=== PATIENT | male | born 1990 | race Caucasian/White ===

== ENCOUNTER 2016-12-06 14:59 | Emergency (ER) | payer MEDICAID ==
[2016-12-06 15:05] VITALS: BP 121/71; PULSE 78; RESP 20; TEMP 98.2; O2SAT 94
--- NOTE | 2016-12-06 15:24 | EDPHY ---
H & P Time Seen by Provider: 12/06/16 15:11 HPI/ROS: CHIEF COMPLAINT: Sore throat HISTORY OF PRESENT ILLNESS: Patient is a 26-year-old male who presents emergency department multiple cold-like complaints. The patient states the symptoms started 1 week ago. He developed significant runny nose and congestion. He has now had sore throat for weak. He has discomfort that is mild on both sides. He has no difficulty swallowing. He had mild nausea with no vomiting. He has had a cough that is productive of orange sputum. The patient smokes cigarettes and THC. Patient denies chest pain. He has mild bilateral ear pain with no discharge. No hearing change. REVIEW OF SYSTEMS: My complete review of systems is negative except as mentioned in the HPI. Past Medical/Surgical History: Includes appendectomy Social history: The patient reports THC and tobacco use. occasional alcohol use. Smoking Status: Current every day smoker Physical Exam: Vitals noted. Afebrile. GENERAL: Well-appearing, in no acute distress, alert. HEENT: Eyes normal to inspection, no signs of dehydration. Mild pharyngeal erythema. Uvula is midline. No asymmetry. No visible signs of peritonsillar retropharyngeal abscess. No lesions or discharge. NECK: No thyromegaly, no lymphadenopathy, supple. RESPIRATORY: Clear to auscultation bilaterally, no rales, rhonchi or wheezing. CVS: Regular rate and rhythm, no rubs, murmurs, or gallops. ABDOMEN: Soft, nontender, nondistended, no organomegaly. BACK: Normal to inspection, no CVA tenderness. SKIN: Normal color, no rash, warm, dry. No pallor. EXTREMITIES: No pedal edema, no calf tenderness, no joint swelling. NEURO/PSYCH: Alert and oriented x3, normal mood and affect, normal motor sensory exam. No obvious cranial nerve deficit. Constitutional: Initial Vital Signs Temperature (C) 36.8 C 12/06/16 15:03 Heart Rate 78 12/06/16 15:03 Respiratory Rate 20 12/06/16 15:03 Blood Pressure 121/71 H 12/06/16 15:03 O2 Sat (%) 94 12/06/16 15:03 O2 Delivery Mode Room Air Allergies/Adverse Reactions: No Known Allergies Allergy (Verified 12/06/16 15:03) Home Medications: Medication Instructions Recorded Ibuprofen [Motrin (*)] 800 mg PO Q6-8PRN #30 tab 07/08/16 Acyclovir 400 mg PO TID #30 tablet 08/04/16 AZITHROMYCIN [Z-PACK] 250 mg PO DAILY #1 packet 12/06/16 Medical Decision Making ED Course/Re-evaluation: In the emergency department I discussed possible etiologies with the patient. I answered all the patient's questions. The patient was given a prescription for azithromycin. He is given warnings prior to leaving. He will return with worsening symptoms. Differential Diagnosis: My differential includes but is not limited to pharyngitis, strep pharyngitis, peritonsillar abscess, retropharyngeal abscess, mononucleosis,, pneumonia, bronchitis, small-bowel obstruction, perforation, pancreatitis Departure - Departure Disposition: Home, Routine, Self-Care Clinical Impression: Acute pharyngitis Qualifiers: Pharyngitis/tonsillitis etiology: unspecified etiology Qualified Code(s): J02.9 - Acute pharyngitis, unspecified Condition: Good Instructions: Pharyngitis (ED) Additional Instructions: Return with increasing pain, difficulty swallowing, persistent fever, shortness of breath or any other concerns. Take your entire course of antibiotics. Referrals: Diana Barragan MD [Medical Doctor] - 5-7 days, if not improved Prescriptions: AZITHROMYCIN [Z-PACK] 250 mg PO DAILY #1 packet
== END 2016-12-06 15:55 | disposition home or self-care (01) ==
DX: J02.9 Acute pharyngitis, unspecified (principal); F17.200 Nicotine dependence, unspecified, uncomplicated

== ENCOUNTER 2016-12-14 11:07 | Emergency (ER) | payer MEDICAID ==
[2016-12-14 11:13] VITALS: BP 126/72; PULSE 77; RESP 22; TEMP 97.9; O2SAT 95
--- NOTE | 2016-12-14 12:25 | EDPHY ---
H & P Time Seen by Provider: 12/14/16 12:22 HPI/ROS: HPI: 26-year-old male presents to emergency department chief concern right forearm skin infection. Overnight, developed a red, itchy area on the right forearm that has grown larger and "hard" under the skin. This happened while he was asleep. Area is itchy and painful. Denies fever, chills, myalgias, recent infections, nausea vomiting. Denies swelling or limited range of motion. Has no significant past medical history. Has no recent infections. 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 He has no primary care provider. ROS:10 point review of systems is negative other than as stated in HPI Past Medical/Surgical History: Denies Smoking Status: Current every day smoker Physical Exam: Vital signs stable, reviewed by me General: Awake, alert, calm, cooperative. No acute distress. Head: Normalocephalic. Atraumatic. EENT: PERRLA. EOMI. No pallor or injection. Anicteric. No nystagmus. Neck: Supple, nontender. No lymphadenopathy. Full range of motion. Respiratory: Breathing unlabored. CV: Chest nontender, atraumatic. Heart rate regular. GI: Abdomen soft, nontender. Neuro: Alert. Oriented x 3. Speech clear. Nonfocal cranial nerves throughout. Sensation intact all extremities. Strength 5+ all extremities. Follows commands. Skin: Skin warm, dry, 1 cm x 1 cm erythematous papule with underlying induration. No fluctuance. No discharge present. Skin turgor normal. Extremities: Full range of motion in all 4 extremities. Mental status: Interactive, appropriate, well-groomed. Constitutional: Initial Vital Signs Temperature (C) 36.6 C 12/14/16 11:11 Heart Rate 77 12/14/16 11:11 Respiratory Rate 22 H 12/14/16 11:11 Blood Pressure 126/72 H 12/14/16 11:11 O2 Sat (%) 95 12/14/16 11:11 O2 Delivery Mode Room Air Allergies/Adverse Reactions: No Known Allergies Allergy (Verified 12/14/16 11:10) Home Medications: Medication Instructions Recorded Sulfamethox/Tmp 800/160 mg 1 tab PO BID #14 tab 12/14/16 [Bactrim Ds] Medical Decision Making ED Course/Re-evaluation: Vitals stable. Patient is immunocompetent and nontoxic. He is afebrile. Vitals are stable. He has no history of MRSA or other significant infections. He has no primary care provider. I have advised symptomatic care. There is no abscess to drain at this time. If symptoms worsen, he should start Bactrim. He verbalizes understanding of this plan and agrees to do so. Differential Diagnosis: Differential diagnosis includes but is not limited to abscess, MRSA, cellulitis Departure - Departure Disposition: Home, Routine, Self-Care Clinical Impression: infected papule of skin Condition: Good Instructions: Acute Wounds (ED) Additional Instructions: Plan: Heat to area 3 times daily for 20 minutes Wash with warm, soapy water and apply antibiotic ointment daily If symptoms worsen over the next 2-3 days, begin Bactrim antibiotic as prescribed Please get a [facility] and get established with primary care Return for recheck should symptoms worsen, if you develop fever vomiting Referrals: NONE *PRIMARY CARE P,. [Primary Care Provider] - As per Instructions [facility],. [Clinic] - As per Instructions Prescriptions: Sulfamethox/Tmp 800/160 mg [Bactrim Ds] 1 tab PO BID #14 tab
== END 2016-12-14 12:36 | disposition home or self-care (01) ==
DX: L08.9 Local infection of the skin and subcutaneous tissue, unspecified (principal); F17.200 Nicotine dependence, unspecified, uncomplicated

== ENCOUNTER 2017-04-01 11:21 | Emergency (ER) | payer MEDICAID ==
[2017-04-01 11:34] VITALS: BP 122/73; PULSE 79; RESP 18; TEMP 98.8; O2SAT 94
== END 2017-04-01 12:38 | disposition left against medical advice (07) ==
DX: Z53.21 Procedure and treatment not carried out due to patient leaving prior to being seen by health care provider (principal)

== ENCOUNTER 2017-05-05 15:19 | Emergency (ER) | payer MEDICAID ==
[2017-05-05 15:26] VITALS: BP 98/75; PULSE 109; RESP 16; TEMP 99.3; O2SAT 93
[2017-05-05] MEDS ORDERED: TDAP ADULT 0.5 ML INJ (BOOSTRIX) IM ONE (16:00)
--- NOTE | 2017-05-05 16:01 | EDPHY ---
H & P Stated Complaint: LACERATION TO LEFT LEG WITH BARBED WIRE Time Seen by Provider: 05/05/17 16:01 HPI/ROS: HPI: This is a 27-year-old male who presents with Chief Complaint: Scratches on length Location: Left lower leg Quality: Scratches Duration: Early yesterday morning Signs and Symptoms: No bleeding, no radiation, no numbness, no weakness, no tingling, no decreased range of motion, no redness, no warmth Timing: Sudden, improving Severity: Mild Context: Patient reports that he was running through the park with his dog and accidentally stepped over some barbed wire that scratch his left lower leg in 3 places. Patient washed with mild soap and water as well as hydrogen peroxide. He is unsure of his tetanus shot she came to the ER for a booster. He has no other complaints. Ambulatory without deficits. Modifying Factors: Local wound care Comment: ROS: Constitutional: No fever, no chills, no weight loss Eyes: No blurred vision Respiratory: No shortness of breath, no cough Cardiovascular: No chest pain Gastrointestinal: No nausea, no vomiting no diarrhea Genitourinary: No dysuria Extremities: No myalgias Neurologic: No weakness, no numbness Skin: No rashes Hematologic: No bruising, no bleeding MEDICAL/SURGICAL/SOCIAL HISTORY: Generally healthy. Denies surgical history. Source: Patient Exam Limitations: No limitations - Personal History Current Tetanus Diphtheria and Acellular Pertussis (TDAP): No Tetanus Vaccine Date: > 10 YEARS - Medical/Surgical History Hx Asthma: Yes Hx Chronic Respiratory Disease: No Hx Diabetes: No Hx Cardiac Disease: No Hx Renal Disease: No Hx Cirrhosis: No Hx Alcoholism: No Hx HIV/AIDS: No Hx Splenectomy or Spleen Trauma: No Other PMH: appendectomy chronic pain/back/shoulders - Social History Smoking Status: Current every day smoker - Physical Exam Exam: CONSTITUTIONAL: Young adult male, who smells heavily of marijuana, awake and alert, no obvious distress HEENT: Atraumatic and normocephalic, PERRL, EOMI. Tympanic membranes clear. Oropharynx clear, no exudate and moist pink mucosa. Airway patent. No lymphadenopathy. No meningismus. Cardiovascular: Normal S1/S2, regular rate, regular rhythm, without murmur rub or gallop. PULMONARY/CHEST: Symmetrical and nontender. Clear to auscultation bilaterally Good air movement. No accessory muscle usage. ABDOMEN: Soft, nondistended, nontender, no rebound, no guarding, no peritoneal signs, no masses or organomegaly. No CVAT. EXTREMITIES: 2/2 pulses, no deformities, no clubbing, no cyanosis or edema. NEUROLOGICAL: no focal neuro deficits. GCS 15. SKIN: Warm and dry, 3 small superficial abrasion on left lower calf; no erythema. no rash. Good capillary refill. Constitutional: Initial Vital Signs Temperature (C) 37.4 C 05/05/17 15:24 Heart Rate 109 H 05/05/17 15:24 Respiratory Rate 16 05/05/17 15:24 Blood Pressure 98/75 L 05/05/17 15:24 O2 Sat (%) 93 05/05/17 15:24 O2 Delivery Mode Room Air Allergies/Adverse Reactions: No Known Allergies Allergy (Verified 05/05/17 15:27) Home Medications: Medication Instructions Recorded NK [No Known Home Meds] 04/01/17 Medical Decision Making ED Course/Re-evaluation: Wounds are greater than 24 hours old and do not require suturing as they superficial nature. Tetanus booster given. Advised to continue local wound care. Differential Diagnosis: Differential diagnosis includes but is not limited to contusion, abrasion, laceration, inflammation, cellulitis. Departure - Departure Disposition: Home, Routine, Self-Care Clinical Impression: Leg abrasion, non-infected Condition: Good Instructions: Abrasion (ED) Additional Instructions: Wash site daily with mild soap and water. Apply topical antibiotic daily as needed to prevent infection. Monitor signs and symptoms of infection including but not limited to redness, warmth, purulent drainage. Referrals: [facility],. [Clinic] - As per Instructions
== END 2017-05-05 16:22 | disposition home or self-care (01) ==
DX: S80.812A Abrasion, left lower leg, initial encounter (principal); F17.200 Nicotine dependence, unspecified, uncomplicated; J45.909 Unspecified asthma, uncomplicated; Z23 Encounter for immunization; W26.8XXA Contact with other sharp object(s), not elsewhere classified, initial encounter; Y92.830 Public park as the place of occurrence of the external cause; Y99.8 Other external cause status; Y93.02 Activity, running

== ENCOUNTER 2017-07-04 13:23 | Emergency (ER) | payer MEDICAID ==
[2017-07-04 13:29] VITALS: RESP 16; TEMP 98.6; O2SAT 99
[2017-07-04 13:30] VITALS: BP 115/71
--- NOTE | 2017-07-04 15:28 | EDPHY ---
H & P Time Seen by Provider: 07/04/17 14:24 HPI/ROS: CHIEF COMPLAINT: Laceration left index finger HISTORY OF PRESENT ILLNESS: 27-year-old male presents to the emergency department laceration to the left index finger. The patient was at home and accidentally cut himself with a knife while chopping vegetables. The incident happened just prior to arrival. Complains of isolated pain to the left index finger. He believes his tetanus shot is current. Denies any other trauma or injury. He is right-hand dominant. ROS: Denies numbness or tingling in his fingers, retained foreign body. Past Medical/Surgical History: Appendectomy Social History: Single and lives in [place]. 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 Full flexion and extension of the finger. No palpable bony tenderness. No evidence of tendon injury. No evidence of retained foreign body. Full range of motion of his other fingers. The other fingers do not appear injured. Normal sensation to light touch with normal 2 point discrimination. Constitutional: Initial Vital Signs Temperature (C) 37.0 C 07/04/17 13:27 Heart Rate 107 H 07/04/17 13:27 Respiratory Rate 16 07/04/17 13:27 Blood Pressure 115/71 07/04/17 13:27 O2 Sat (%) 99 07/04/17 13:27 O2 Delivery Mode Room Air Allergies/Adverse Reactions: No Known Allergies Allergy (Verified 07/04/17 13:26) Home Medications: Medication Instructions Recorded NK [No Known Home Meds] 04/01/17 MDM/Departure - MDM Procedures: Laceration repair. Verbal consent was obtained from the patient. The 1.5 cm laceration on the left index finger was anesthetized using 1% lidocaine with epinephrine. The wound was irrigated with saline, draped and explored to its base with a gloved finger. There were no deep structures involved. No tendon injury was identified. The wound was repaired with 5 0 Ethilon, 4 sutures. The wound repair was simple. The procedure was performed by myself. ED Course/Re-evaluation: 27-year-old male presents emergency department laceration to the left index finger. The wound was repaired, see procedure note. Patient was given wound care precautions. - Depart Disposition: Home, Routine, Self-Care Clinical Impression: Laceration of left index finger Qualifiers: Encounter type: initial encounter Damage to nail status: without damage Foreign body presence: without foreign body Qualified Code(s): S61.211A - Laceration without foreign body of left index finger without damage to nail, initial encounter Condition: Good Instructions: Care For Your Stitches (ED), Laceration (ED), Acute Wounds (ED) Additional Instructions: Wound Care Follow-Up: Removal of sutures in 10 days. Suture removal is complimentary in uncomplicated cases. Infection or abnormal findings would require reevaluation by the MD. In that case, you may be billed. Return to the emergency department if you notice any signs or symptoms of infection such as redness, swelling, increased pain, fever, purulent drainage. Referrals: Reva Villanueva DO [Doctor of Osteopathy] - As per Instructions
[2017-07-04 15:54] VITALS: PULSE 76
== END 2017-07-04 15:52 | disposition home or self-care (01) ==
PROC: 0HQGXZZ Repair Left Hand Skin, External Approach (ICD-10-PCS; principal; 2017-07-04)
DX: S61.211A Laceration without foreign body of left index finger without damage to nail, initial encounter (principal); W26.0XXA Contact with knife, initial encounter; Y92.009 Unspecified place in unspecified non-institutional (private) residence as the place of occurrence of the external cause; Y93.89 Activity, other specified; F17.200 Nicotine dependence, unspecified, uncomplicated

== ENCOUNTER 2017-09-28 09:49 | Emergency (ER) | payer MEDICAID ==
[2017-09-28 09:55] VITALS: BP 131/93; PULSE 68; RESP 16; TEMP 98.6; O2SAT 96
--- NOTE | 2017-09-28 09:57 | EDPHY ---
H & P Stated Complaint: cough, chills, body aches x 2 days Time Seen by Provider: 09/28/17 09:57 HPI/ROS: HPI: This is a 27-year-old male who presents with Chief Complaint: cough, chills, body aches x 2 days Location: Chest Quality: Cough Duration: 1 day Signs and Symptoms:+ fever, + chills, + dry hacking cough, + no sore throat, + fatigue, + body aches, + no chest pain, no shortness of breath, no wheezing, no abdominal pain, no nausea, vomiting Timing: Sudden, constant Severity: Moderate Context: Patient presents with complaints of 2 day history of chills, body aches, subjective fevers and fatigue and 1 day history of harsh productive cough. He has a history of asthma diagnosis a child. Reports that he has albuterol inhaler and albuterol nebulizer with medication vials at home but he has not used any of these medications as he does not feel short of breath or have any wheezing. Patient reports that he has been taking Motrin every 8 hr around the clock for the last 2 days. He does not believe in influenza vaccine because when he was 5 years old he had the flu shot and then was diagnosed with the flu. Eating and drinking normally. + tobacco user Modifying Factors: Motrin Comment: ROS: see HPI Constitutional: + fever, no chills, no weight loss Eyes: No blurred vision Respiratory: No shortness of breath, + cough Cardiovascular: No chest pain Gastrointestinal: No nausea, no vomiting, no diarrhea Genitourinary: No dysuria Extremities: No myalgias Neurologic: No weakness, no numbness Skin: No rashes Hematologic: No bruising, no bleeding MEDICAL/SURGICAL/SOCIAL HISTORY: Medical history: + tobacco user. Childhood asthma. Does not take any regular medications. Surgical history: Appendectomy Social history: Employed. CONSTITUTIONAL: Well-developed, well-nourished adult white male, awake and alert, no obvious distress HEENT: Atraumatic and normocephalic, PERRL, EOMI. Tympanic membranes clear. Oropharynx clear, no exudate and moist pink mucosa. Airway patent. No lymphadenopathy. No meningismus. Cardiovascular: Normal S1/S2, regular rate, regular rhythm, without murmur rub or gallop. PULMONARY/CHEST: Symmetrical and nontender. Clear to auscultation bilaterally. Good air movement. No accessory muscle usage. ABDOMEN: Soft, nondistended, nontender, no rebound, no guarding, no peritoneal signs, no masses or organomegaly. No CVAT. EXTREMITIES: 2/2 pulses, strength 5/5, no deformities, no clubbing, no cyanosis or edema. NEUROLOGICAL: no focal neuro deficits. GCS 15. SKIN: Warm and dry, no erythema. no rash. Good capillary refill. Source: Patient Exam Limitations: No limitations - Personal History Current Tetanus/Diphtheria Vaccine: Unsure Current Tetanus Diphtheria and Acellular Pertussis (TDAP): Unsure Tetanus Vaccine Date: 2016 - Medical/Surgical History Hx Asthma: No Hx Chronic Respiratory Disease: No Hx Diabetes: No Hx Cardiac Disease: No Hx Renal Disease: No Hx Cirrhosis: No Hx Alcoholism: No Hx HIV/AIDS: No Hx Splenectomy or Spleen Trauma: No Other PMH: appendectomy - Social History Smoking Status: Current every day smoker Constitutional: Initial Vital Signs Temperature (C) 37.0 C 09/28/17 09:53 Heart Rate 68 09/28/17 09:53 Respiratory Rate 16 09/28/17 09:53 Blood Pressure 131/93 H 09/28/17 09:53 O2 Sat (%) 96 09/28/17 09:53 O2 Delivery Mode Room Air Allergies/Adverse Reactions: No Known Allergies Allergy (Verified 07/04/17 13:26) Home Medications: Medication Instructions Recorded Benzonatate [Tessalon Pearles (RX)] 100 mg PO Q6 PRN #15 cap 09/28/17 Oseltamivir Phosphate [Tamiflu 75 75 mg PO BID #10 cap 09/28/17 mg (*)] Medical Decision Making - Diagnostics Imaging Results: Imaging Impressions Chest X-Ray 09/28/17 10:01 Impression: Normal. ED Course/Re-evaluation: Due to history of asthma and fever; chest x-ray ordered to evaluate for pneumonia. Patient has no wheezing/respiratory distress/hypoxia and politely declined nebulizer therapy. He was given Tessalon Perles with adequate relief Influenza A positive; Tamiflu candidate due to lung disease history Chest x-ray my read shows no signs of infiltrate, effusion, pneumothorax, widened mediastinum No signs of asthma exacerbation This patient was seen under the supervision of my secondary supervising physician. I evaluated care for this patient independently. Differential Diagnosis: Differential diagnosis includes but is not limited to influenza, asthma exacerbation, pneumonia, upper respiratory infection. - Data Points Laboratory Results: 09/28/17 09:55 Nasal Influenza A PCR FLU A DETECTED H (NEGATIVE) Nasal Influenza B PCR NEGATIVE FOR FLU B (NEGATIVE) Medications Given: Discontinued Medications Benzonatate (Tessalon Pearles) 200 mg PO EDNOW ONE Stop: 09/28/17 10:02 Last Admin: 09/28/17 10:06 Dose: 200 mg Departure - Departure Disposition: Home, Routine, Self-Care Clinical Impression: Influenza A Asthma Qualifiers: Asthma severity: mild Asthma persistence: persistent Asthma complication type: uncomplicated Qualified Code(s): J45.30 - Mild persistent asthma, uncomplicated Condition: Good Instructions: Influenza (ED) Referrals: [facility],. [Clinic] - As per Instructions Prescriptions: Benzonatate [Tessalon Pearles (RX)] 100 mg PO Q6 PRN #15 cap PRN Reason: Cough, Moderate Oseltamivir Phosphate [Tamiflu 75 mg (*)] 75 mg PO BID #10 cap
[2017-09-28] MEDS ORDERED: BENZONATATE 100 MG CAP PO ONE (10:01)
== END 2017-09-28 10:50 | disposition home or self-care (01) ==
DX: J10.1 Influenza due to other identified influenza virus with other respiratory manifestations (principal); J45.30 Mild persistent asthma, uncomplicated; F17.200 Nicotine dependence, unspecified, uncomplicated

== ENCOUNTER → 2017-11-06 | Emergency (ER) | payer MEDICAID | END | disposition left against medical advice (07) | DX: Z53.21 Procedure and treatment not carried out due to patient leaving prior to being seen by health care provider (principal) ==

== ENCOUNTER 2017-11-10 09:09 | Emergency (ER) | payer MEDICAID ==
--- NOTE | 2017-11-10 09:27 | EDPHY ---
H & P Stated Complaint: R heel pain x 1 wk;no injury;neg xray at [place] [facility] Time Seen by Provider: 11/10/17 09:27 - Personal History Current Tetanus Diphtheria and Acellular Pertussis (TDAP): Yes Tetanus Vaccine Date: 2016 - Medical/Surgical History Hx Asthma: No Hx Chronic Respiratory Disease: No Hx Diabetes: No Hx Cardiac Disease: No Hx Renal Disease: No Hx Cirrhosis: No Hx Alcoholism: No Hx HIV/AIDS: No Hx Splenectomy or Spleen Trauma: No Other PMH: appendectomy. plantar fascitis - Social History Smoking Status: Current every day smoker Constitutional: Initial Vital Signs Temperature (C) 36.7 C 11/10/17 09:10 Heart Rate 69 11/10/17 09:10 Respiratory Rate 16 11/10/17 09:10 Blood Pressure 144/91 H 11/10/17 09:10 O2 Sat (%) 96 11/10/17 09:10 O2 Delivery Mode Room Air Allergies/Adverse Reactions: No Known Allergies Allergy (Verified 11/10/17 09:14) Home Medications: Medication Instructions Recorded NK [No Known Home Meds] 11/10/17 Medical Decision Making - Diagnostics Imaging Results: Imaging Impressions Extremity CT 11/10/17 09:31 Impression: No evidence for fracture or fracture line of the calcaneus. An MRI could be performed for further evaluation to look for more subtle stress injury of the calcaneus or other abnormalities such as plantar fasciitis. Results called and discussed with Brandon Manning M.D. on 11/10/2017 at 10:30 a.m. Imaging: Discussed imaging studies w/ orthopedically impaired teacher Radiologist, I viewed and interpreted images myself ED Course/Re-evaluation: CHIEF COMPLAINT: Right heel pain HISTORY OF PRESENT ILLNESS: Patient is very active and runs. He had no specific injury. He notice heel pain about 2 weeks ago. It has gotten much worse and progressed and is now radiating up his Achilles. He was seen at the [facility] ([place], [place]) and had negative plain films. They told him to expect it to get better over a few days but it has gotten worse. He is here for further evaluation. He denies any other injuries. He denies any prior injury to that he will but he has had some ankle sprains in fractures on that right ankle. No chest pain, shortness of breath, abdominal pain, urinary or bowel complaints, fever, headache. REVIEW OF SYSTEMS: A 10 point review of systems was performed and is negative with the exception of the elements mentioned in the history of present illness. PHYSICAL EXAM: HR, BP, O2 Sat, RR. Temp noted General Appearance: Alert, well hydrated, appropriate, and non-toxic appearing. Head: Atraumatic without scalp tenderness or obvious injury Eyes: Pupils equal, round, reactive to light and accommodation, EOMI, no trauma , no injection. Ears: Clear bilaterally, no perforation, normal landmarks Nose: Atraumatic, no rhinorrhea, clear. Throat: Mucus membranes moist. Neck: Supple, nontender, no lymphadenopathy. Respiratory: No retractions, no distress, no wheezes, and no accessory muscle use. Lungs are clear to auscultation bilaterally. Cardiovascular: Regular rate and rhythm, no murmurs, rubs, or gallops. Good capillary refill all extremities. Gastrointestinal: Abdomen is soft, nontender, non-distended, no masses, no rebound, no guarding, no peritoneal signs. Musculoskeletal: Point tenderness over the posterior superior aspect of the calcaneus on the sides of the Achilles tendon. Otherwise, Normal active ROM of all extremities, atraumatic. Neurological: Alert, appropriate, and interactive. Non-focal neuro. Skin: No rashes, good turgor, no nodules on palpation. Past medical history: Orthopedic injuries as mentioned above Past surgical history: None Family history: Noncontributory Social history: Single, employed, does not abuse tobacco drugs or alcohol DIAGNOSTICS/PROCEDURES/CRITICAL CARE TIME: Study: CT of the right calcaneus Indication: Progressing calcaneal pain with negative plain films Results: CT scan of the right calcaneus was obtained. The results of the study are normal. The study was read by the radiologist, Dr. Julian. I viewed the images myself on the PACS system. DIFFERENTIAL DIAGNOSIS: Includes but is not limited to: Soft tissue injury, ligamentous injury, occult fracture, sprain, strain MEDICAL DECISION MAKING: This patient has progressing calcaneus pain especially while bearing weight. He does run considerable number miles each week and he also stands on his feet while working. He had negative plain films ordered as the pain has progressed, so he came for further evaluation. 1028: Spoke with Dr. Julian, radiologist, regarding patient's foot CT. There is no evidence of an osseous injury. Reassessed patient and discussed imaging findings. His symptoms are consistent with a foot contusion. I have referred him to an outpatient follow up visit with an orthopedic surgeon. Return precautions provided; patient is comfortable with this plan. Departure - Departure Disposition: Home, Routine, Self-Care Clinical Impression: Pain of right heel Contusion, foot Qualifiers: Encounter type: initial encounter Laterality: right Qualified Code(s): S90.31XA - Contusion of right foot, initial encounter Condition: Good Instructions: Foot Contusion (ED) Additional Instructions: 1. Rest, ice, elevation. Follow up with an orthopedic surgeon within one week. 2. Return to the emergency department for worsening pain, swelling, numbness, weakness or other concerns. 3. Wear the post-op shoe until reevaluation, but okay to shower and sleep without it. 4. Use ibuprofen as directed for pain. Referrals: Mohsen Alvarado MD [Medical Doctor] - As per Instructions Report Scribed for: Brandon Manning Report Scribed by: Cindy Astorga Date of Report: 11/10/17 Time of Report: 09:35
[2017-11-10 10:42] VITALS: BP 112/78; PULSE 67; RESP 15; TEMP 98.7; O2SAT 99
== END 2017-11-10 10:40 | disposition home or self-care (01) ==
DX: S90.31XA Contusion of right foot, initial encounter (principal); F17.200 Nicotine dependence, unspecified, uncomplicated; X58.XXXA Exposure to other specified factors, initial encounter

== ENCOUNTER 2018-03-22 12:13 | Emergency (ER) | payer MEDICAID ==
--- NOTE | 2018-03-22 13:06 | EDPHY ---
HPI/HX/ROS/PE/MDM Narrative: CHIEF COMPLAINT: Fall, anterior and posterior rib pain. HISTORY OF PRESENT ILLNESS: This patient is a healthy 27 year old male who complains of left anterior and posterior rib pain after falling while trail running yesterday. He was running [place] a [place] trail [place] and [place]pped and fell, landing on a rock under his left armpit. He denies any shoulder joint pain or clavicle pain. He endorses some upper left-sided sternal pain and left scapular pain. He has increased discomfort with deep inspiration. The patient states he feels like a rib on the left is "displaced". He has a history of prior rib fractures, but his current pain is not similar to this. He denies any other recent trauma. He did not strike his head. No loss of consciousness. No fever, chills, shortness of breath, palpitations, vomiting, diarrhea, urinary complaints, headache, lightheadedness. REVIEW OF SYSTEMS: Aside from elements discussed in the HPI, a comprehensive 10-point review of systems was reviewed and is negative. PAST MEDICAL HISTORY: Denies. SOCIAL HISTORY: Marijuana use. Lives in [place]. Single. VITAL SIGNS: Reviewed by me; see NN. GENERAL: Well-developed, well-nourished, in no acute distress. HEENT: Head: Atraumatic, normocephalic. Face: Atraumatic. PERRL, EOMI, no nystagmus. Oropharynx: No trauma, normal occlusion. Neck: Nontender to palpation, no pain with range of motion, no adenopathy. CHEST: Mild tenderness along anterior left upper chest, just under clavicle, no subcutaneous air palpable. Area of tenderness to left of upper thoracic spine. LUNGS: Diminished breath sounds throughout. CARDIAC: Regular rate and rhythm, no rubs, murmurs or gallops. ABDOMEN: Soft, nontender, nondistended, bowel sounds normal. BACK: No CVA tenderness, no spinal tenderness. EXTREMITIES: Abrasions under left armpit. Abrasion to left forearm. Abrasion to right elbow, extending down right forearm. Healing abrasions to left knee. Normal range of motion. PULSES: 2+ and equal throughout. NEURO: Alert and oriented x3, cranial nerves are intact throughout, normal motor , normal sensation. SKIN: Warm and dry, no rash. Portions of this note were transcribed by a medical staff director. I personally performed a history, physical exam, medical decision making, and confirmed accuracy of information the transcribed note. ED Course: 27 y/o male presents with left anterior and posterior rib pain secondary to a mechanical fall while trail running. Exam reveals multiple abrasions, under his left armpit, on his upper extremities, and on his left knee. Breath sounds are diminished throughout. Plan for chest x-ray with ribs to r/o fracture, pneumothorax, or other acute processes. Reviewed CXR. Negative for acute fracture or pneumothorax. Radiologist report concurs. Reassessed patient. Discussed imaging results. Plan to discharge home in good condition with a prescription for [place] for severe pain. Follow up and return precautions discussed. The patient is comfortable with this plan. MDM: Diff dx considered included contusion, abrasion, rib fracture, rib displacement , musculoskeletal pain, ptx. - Data Points Imaging Results: Impression: No displaced rib fracture identified. Dictated By: Ziyad Sanchez MD Imaging: I viewed and interpreted images myself General Time Seen by Provider: 03/22/18 12:57 Initial Vital Signs: Initial Vital Signs Temperature (C) 36.7 C 03/22/18 12:21 Heart Rate 89 03/22/18 12:21 Respiratory Rate 16 03/22/18 12:21 Blood Pressure 116/70 03/22/18 12:21 O2 Sat (%) 94 03/22/18 12:21 O2 Delivery Mode Room Air Allergies/Adverse Reactions: amoxicillin [From Augmentin] Allergy (Verified 03/22/18 12:24) clavulanic acid [From Augmentin] Allergy (Verified 03/22/18 12:24) quetiapine [From Seroquel] Allergy (Verified 03/22/18 12:24) Home Medications: Medication Instructions Recorded Hydrocodone/APAP 5/325 [[place] 1 tab PO Q6H PRN #10 tab 03/22/18 5/325 (RX)] Departure - Departure Disposition: Home, Routine, Self-Care Clinical Impression: Contusion of rib on left side Qualifiers: Encounter type: initial encounter Qualified Code(s): S20.212A - Contusion of left front wall of thorax, initial encounter Condition: Good Instructions: Hydrocodone/Acetaminophen (By mouth), Rib Fracture (ED), Contusion in Adults (ED), Chest Wall Pain (ED) Additional Instructions: I recommend Ibuprofen (Motrin, Advil) or Naproxen Sodium (Aleve) for pain and anti-inflammatory effects. You may take either one, but do not take both. Your dose is: Ibuprofen 600 mg every 6-8 hours with food. OR Naproxen Sodium (Aleve) 220 mg every 12 hours. Take [place] as prescribed as needed for severe pain. Note: do not take Acetaminophen with Hydrocodone (Vicodin, Lortab) or Oxycodone (Percocet). These medications also contain Acetaminophen. No more than 3000mg of Acetaminophen should be taken in 24 hours (for an adult). Use ice as needed for discomfort. Take frequent, deep breaths to avoid the development of pneumonia. Return to the emergency department or seek care urgently if you're not improving despite the above measures. Referrals: Chelsea Duong MD [Medical Doctor] - As per Instructions Prescriptions: Hydrocodone/APAP 5/325 [[place] 5/325 (RX)] 1 tab PO Q6H PRN #10 tab PRN Reason: Pain Report Scribed for: Verona Carnes Report Scribed by: Ashley Suarez Date of Report: 03/22/18 Time of Report: 13:29
[2018-03-22 13:32] VITALS: BP 128/71
== END 2018-03-22 13:30 | disposition home or self-care (01) ==
DX: R07.81 Pleurodynia (principal); S40.812A Abrasion of left upper arm, initial encounter; S50.311A Abrasion of right elbow, initial encounter; S80.212A Abrasion, left knee, initial encounter; W01.198A Fall on same level from slipping, tripping and stumbling with subsequent striking against other object, initial encounter; Y93.02 Activity, running; Y92.828 Other wilderness area as the place of occurrence of the external cause

== ENCOUNTER 2018-04-15 20:47 | Emergency (ER) | payer MEDICAID ==
[2018-04-15 21:00] VITALS: BP 120/77
--- NOTE | 2018-04-15 21:17 | EDPHY ---
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 No rectal foreign body or trauma. PHYSICAL EXAM (Prior to examination, patient consented to physical exam, hands were washed and my usual and customary physical exam procedures followed) 1) GENERAL: Well-developed, well-nourished, alert and oriented. Appears to be in no acute distress. 2) HEAD: Normocephalic 3) HEENT: sclera anicteric 4) LUNGS: Breathing comfortably. 5) SKIN: Right inferior buttock laceration measuring 2.5 cm. 6) MUSCULOSKELETAL: Wound is explored, does not appear to involve the fascial layers. Smoking Status: Current every day smoker Constitutional: Initial Vital Signs Temperature (C) 37.2 C 04/15/18 20:58 Heart Rate 77 04/15/18 20:58 Respiratory Rate 16 04/15/18 20:58 Blood Pressure 120/77 04/15/18 20:58 O2 Sat (%) 93 04/15/18 20:58 O2 Delivery Mode Room Air Allergies/Adverse Reactions: amoxicillin [From Augmentin] Allergy (Verified 03/22/18 12:24) clavulanic acid [From Augmentin] Allergy (Verified 03/22/18 12:24) quetiapine [From Seroquel] Allergy (Verified 03/22/18 12:24) Home Medications: Medication Instructions Recorded NK [No Known Home Meds] 04/15/18 ED Images - Extremities Legs Front/Back: 1 - Laceration MDM/Departure - MDM Imaging Results: Imaging Impressions Pelvis X-Ray 04/15/18 21:14 Impression: Round radiopaque structure in the right pelvis that could represent a phlebolith, injection granuloma, or other etiology. This is unlikely to represent glass. If symptoms persist and clinical suspicion warrants, a lateral or additional views could be obtained. Findings discussed with Dwayne Hobbs 04/15/2018 at 21:43. Images myself Procedures: Procedure: Laceration repair. I explained the indications, risks and benefits for both laceration repair and anesthetic administration. Verbal consent was obtained from the patient. The laceration on the right inferior buttock was anesthetized using 0.5% bupivicaine with epinephrine. After anesthetic administered the patient was observed for a period of time and had no apparent adverse effects. The wound was cleaned, prepped, draped in normal sterile fashion and explored to its base. No foreign body seen, no foreign bodies palpated. There were no deep structures involved. The wound was repaired with 6 simple interrupted 4 0 Prolene suture . The wound repair was simple. The procedure was performed by myself. Patient has been informed that scarring will occur, although efforts have been made to minimize this. ED Course/Re-evaluation: X-ray shows no radiopaque foreign body. Wound is closed primarily after the wound has been copiously irrigated. Usual customary wound precautions instructions provided. He feels comfortable being discharged. Wound shows no signs of infection at this time. I saw this patient independently based on established practice protocols. Care of patient under supervision of secondary supervising physician Dr Tse . - Depart Disposition: Home, Routine, Self-Care Clinical Impression: Laceration of right buttock Qualifiers: Encounter type: initial encounter Qualified Code(s): S31.811A - Laceration without foreign body of right buttock, initial encounter Condition: Good Instructions: Care For Your Stitches (ED), Laceration (ED) Additional Instructions: Return to the ER if you develop redness, swelling, discharge, warmth to the wound, red streaks going, or any other symptoms that concern you. Referrals: Return, to the ER in 10 days for suture removal [Other] - 04/25/18
== END 2018-04-15 22:10 | disposition home or self-care (01) ==
PROC: 0HQ8XZZ Repair Buttock Skin, External Approach (ICD-10-PCS; principal; 2018-04-15)
DX: S31.811A Laceration without foreign body of right buttock, initial encounter (principal); W25.XXXA Contact with sharp glass, initial encounter; Y92.89 Other specified places as the place of occurrence of the external cause

== ENCOUNTER 2018-08-13 15:05 | Emergency (ER) | payer MEDICAID, OTHER ==
[2018-08-13 15:14] VITALS: BP 148/97
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
== END 2018-08-13 15:32 ==
DX: S00.01XA Abrasion of scalp, initial encounter (principal); S20.319A Abrasion of unspecified front wall of thorax, initial encounter; M25.511 Pain in right shoulder; F17.200 Nicotine dependence, unspecified, uncomplicated; V47.0XXA Car driver injured in collision with fixed or stationary object in nontraffic accident, initial encounter; W22.11XA Striking against or struck by driver side automobile airbag, initial encounter; Y92.9 Unspecified place or not applicable; Y93.9 Activity, unspecified; Y99.9 Unspecified external cause status

== ENCOUNTER 2018-09-30 12:47 | Emergency (ER) | payer SELFPAY ==
--- NOTE | 2018-09-30 13:08 | EDPHY ---
H & P Stated Complaint: Fell 09/29/18, injury to right knee. Source: Patient Exam Limitations: No limitations - Personal History Current Tetanus Diphtheria and Acellular Pertussis (TDAP): Yes Tetanus Vaccine Date: 2016 - Medical/Surgical History Hx Asthma: Yes Hx Chronic Respiratory Disease: No Hx Diabetes: No Hx Cardiac Disease: No Hx Renal Disease: No Hx Cirrhosis: No Hx Alcoholism: No Hx HIV/AIDS: No Hx Splenectomy or Spleen Trauma: No Other PMH: appendectomy. cholecystectomy. plantar fascitis. - Social History Smoking Status: Current every day smoker Time Seen by Provider: 09/30/18 13:08 HPI/ROS: HPI: This is a 28-year-old male who presents with Chief Complaint: Slipped on ice, right knee injury Location: Right knee Quality: Injury Duration: Yesterday Signs and Symptoms: No bleeding, no radiation, no numbness, no weakness, no tingling, no incontinence, no decreased range of motion, no swelling, + pain, no fever Timing: Acute Severity: Moderate Context: Patient reports that he was walking with his boot on the ice yesterday when he accidentally lost his footing and slipped. He reports that he twisted his right knee laterally. He reports that he felt a pulling sensation in the lateral and anterior aspect of his right knee. He reports that he has tenderness to palpation on the medial aspect and increased pain with weight-bearing. When he fell he did not hit his head or any other extremity. Denies LOC/head injury/neck pain/dizziness/nausea/vomiting/amnesia. Modifying Factors: [id number] medications or ice applied Comment: ROS: A comprehensive 10 system review of systems is otherwise negative aside from elements mentioned in the history of present illness. MEDICAL/SURGICAL/SOCIAL HISTORY: Medical history: Plantar fasciitis. Surgical history: Appendectomy, cholecystectomy Social history: Smokes marijuana daily. CONSTITUTIONAL: Well-developed, well-nourished adult white male, smells heavily of marijuana, awake and alert, no obvious distress HEENT: Atraumatic and normocephalic. NECK: supple, no midline tenderness, flexion 45 degrees, extension 45 degrees, right and left lateral flexion 45 degrees. No meningismus. Cardiovascular: Normal S1/S2, regular rate, regular rhythm, without murmur rub or gallop. PULMONARY/CHEST: Symmetrical and nontender. no crepitus. Clear to auscultation bilaterally. Good air movement. No accessory muscle usage. ABDOMEN: Soft, nondistended, nontender, no ecchymosis. EXTREMITIES: 2/2 pulses, strength 5/5, right KNEE: no effusion, moderate medial joint line tenderness, no lateral joint line tenderness, full extension to 180, flexion to 120. No pain with varus and valgus exam. Moderate pain with anterior drawer test and no pain with posterior drawer test. Extensor mechanism intact. DIP/PIP/MCP flexion/extension intact with good light touch sensation. no deformities, no clubbing, no cyanosis or edema. NEUROLOGICAL: no focal neuro deficits. GCS 15. Light touch sensation intact. SKIN: Warm and dry, no erythema. no rash. Good capillary refill. (Terrie Pantoja) Constitutional: Initial Vital Signs Temperature (C) 36.8 C 09/30/18 12:48 Heart Rate 110 H 09/30/18 12:48 Respiratory Rate 16 09/30/18 12:48 Blood Pressure 135/87 H 09/30/18 12:48 O2 Sat (%) 94 09/30/18 12:48 O2 Delivery Mode Room Air Allergies/Adverse Reactions: amoxicillin [From Augmentin] Allergy (Verified 08/13/18 15:08) clavulanic acid [From Augmentin] Allergy (Verified 08/13/18 15:08) quetiapine [From Seroquel] Allergy (Verified 08/13/18 15:08) Home Medications: Medication Instructions Recorded NK [No Known Home Meds] 04/15/18 Medical Decision Making Procedures: Procedure: Splint placement. A right knee immobilizer and crutches were applied by the Emergency Room legal technician. After application of the splint I returned and re-examined the patient. The splint was adequately immobilizing the joint and distal to the splint the patient's circulation and sensation was intact. (Terrie Pantoja) ED Course/Re-evaluation: Vital signs reviewed and show mild tachycardia. Right knee x-ray at bedside reviewed with patient and via PACs and shows no fracture, dislocation Suspect internal derangement ACL verses medial meniscus Placed in knee immobilizer, crutches, orthopedic follow-up as needed No signs of neurovascular compromise/tenting of skin/compartment syndrome/ extremities and joints examined above and below area of concern and are neurovascularly intact. This patient was seen under the supervision of my secondary supervising physician. I evaluated care for this patient independently. Discussed this patient with Dr. Barroso who did not see the patient. (Terrie Pantoja) I did not see this patient while he was in the emergency department. However his care was discussed with the PA while the patient was in the department. I agree with treatment plan and management (DharmeshJavy Holden) Differential Diagnosis: Knee injury while [] including but not limited to fracture, ACL injury, contusion, muscular strain, and meniscus injury. (Terrie Pantoja) Departure - Departure Disposition: Home, Routine, Self-Care Clinical Impression: Sprain of collateral ligament of right knee Condition: Good Instructions: Knee Sprain (ED), Crutch Instructions (ED), Knee Immobilizer (ED) Additional Instructions: Wear the knee immobilizer while out of bed until pain free or seen by Orthopedics. Use crutches to aid ambulation. Start with toe-touch weight-bearing status. Take Tylenol 650 mg every 4 hours and/or Ibuprofen 600 mg every 8 hours with food as needed for pain. Apply ice for 30 minutes at a time; 2-3 times per day for the next 1-2 days. Follow up with Orthopedics in 1-2 weeks if symptoms persist at which time they will evaluate and recommend with you if conservative management versus MRI is indicated. The x-rays obtained in the emergency department today demonstrate no evidence of an obvious fracture. Sometimes fractures are not obvious on the initial set of x-rays performed in the ED. For this reason, you should have repeat x-rays performed in 7-10 days if you are having any pain exclude the possibility of an occult fracture. Referrals: Elisabet Ahuja MD [Medical Doctor] - As per Instructions
[2018-09-30 14:42] VITALS: BP 102/69
== END 2018-09-30 14:40 | disposition home or self-care (01) ==
DX: S83.401A Sprain of unspecified collateral ligament of right knee, initial encounter (principal); W18.49XA Other slipping, tripping and stumbling without falling, initial encounter; X50.1XXA Overexertion from prolonged static or awkward postures, initial encounter; Y92.9 Unspecified place or not applicable; Y99.9 Unspecified external cause status; Y93.9 Activity, unspecified
CPT/HCPCS: L1830